=== PATIENT | female | born 1935 | race Caucasian/White ===

== ENCOUNTER 2021-02-12 08:09 | Emergency (ER) | payer OTHER ==
[~2021-02-12] VITALS: Ht 160 cm; Wt 68.5 kg
[~2021-02-12 08:09] MED LIST: ACETAMINOPHEN325 M1 PO; ADULT LOW DOSE81 MG PO; ALPRAZOLAM 0.0.25 M1 PO; BAYER CHEWABLE81 MG PO; CALCIUM 600 +1 EA11 PO; ELEMENTAL CALC600 MG PO; METOPROLOL SUCC25 M1 PO; MULTIVITAMINS PO; MULTIVITAMINS1 EAC7 PO; ZOCOR40 MG PO
[2021-02-12 08:12] VITALS: BP 125/80
[2021-02-12] MEDS ORDERED: CYCLOBENZAPRINE5 MG PO (10:00)
--- NOTE | 2021-02-12 15:37 | EKG ---
[place] [address] [facility] [place] [address] ELECTROCARDIOGRAM REPORT Name: PENELOPE WINSTON Room #: [facility]#: [id number] Admission: 02/12/21 Attend Phys: Discharge: 02/12/21 Date of : 35 Report #: [id number] [facility] ED Test Date: 2021-02-12 Test Time: 08:40:05 Pat Name: PENELOPE WINSTON Department: Room: Gender: F Drug Abuse Social Worker: LEW : 1935 Requested By: [place] Waite Order Number: [id number] MD: Shankar Foreman Measurements Intervals [place] Rate: 65 P: 4 VT: 172 QRS: -72 QRSD: 143 T: -11 QT: 423 QTc: 440 Interpretive Statements Sinus rhythm RBBB Probable left ventricular hypertrophy No previous ECG available for comparison Electronically Signed On 02-12-2021 15:37:15 CDT by Shankar Foreman [email or web address] <ELECTRONICALLY SIGNED> By: Shankar Foreman MD, [facility] 02/12/21 1537 0840 0840 Shankar Foreman MD, FACC /EPI
== END 2021-02-12 10:30 | disposition home or self-care (01) ==
LOC: ER 08:09
DX: R07.89 Other chest pain (principal); M54.6 Pain in thoracic spine; E78.5 Hyperlipidemia, unspecified; F41.9 Anxiety disorder, unspecified; E78.00 Pure hypercholesterolemia, unspecified; Z98.890 Other specified postprocedural states; Z79.82 Long term (current) use of aspirin; Z79.891 Long term (current) use of opiate analgesic; Z79.1 Long term (current) use of non-steroidal anti-inflammatories (NSAID); Z79.899 Other long term (current) drug therapy; Z88.0 Allergy status to penicillin